=== PATIENT | female | born 2005 | race Caucasian/White ===

== ENCOUNTER 2024-04-12 12:09 | Day surgery (SDC) | payer BC ==
[2024-04-12] MEDS ORDERED: IRON SUCROSE COMPLEX 200 MG in SODIUM CHLORIDE 100 ML IVPB ONE (13:00)
[2024-04-12] MEDS: IRON SUCROSE INJECTION 200 MG in SODIUM CHLORIDE 100 ML IVPB ONE (13:02)
[2024-04-12 14:21] VITALS: BP 99/77; PULSE 74; RESP 18; TEMP 98.4
== END 2024-04-12 14:15 | disposition home or self-care (01) ==
LOC: FINFUSION 12:09 → FM/S 12:11 → FINFUSION 14:15
PROVIDERS: ATTEND Family Medicine
PROC: 3E033GC Introduction of Other Therapeutic Substance into Peripheral Vein, Percutaneous Approach (ICD-10-PCS; principal; 2024-04-12)
DX: D50.9 Iron deficiency anemia, unspecified (principal)
CPT/HCPCS: 96365; J1756

== ENCOUNTER 2024-05-31 16:09 | Day surgery (SDC) | payer BC ==
[2024-05-31] MEDS: IRON SUCROSE INJECTION 200 MG in SODIUM CHLORIDE 100 ML IVPB ONE (16:53)
[2024-05-31 18:33] VITALS: BP 121/70; PULSE 77; RESP 18; TEMP 98.3
== END 2024-05-31 18:34 | disposition home or self-care (01) ==
LOC: FINFUSION 16:09 → FM/S 16:10 → FINFUSION 18:34
PROVIDERS: ATTEND Family Medicine
PROC: 3E033GC Introduction of Other Therapeutic Substance into Peripheral Vein, Percutaneous Approach (ICD-10-PCS; principal; 2024-05-31)
DX: D50.9 Iron deficiency anemia, unspecified (principal)
CPT/HCPCS: 96365; J1756